=== PATIENT | male | born 1935 | race Caucasian/White ===

== ENCOUNTER 2021-07-29 13:59 | Outpatient (CLI) | payer MEDICARE, BC | END 2021-07-29 14:00 | disposition home or self-care (01) | LOC: BICMAMMO 13:59 | PROVIDERS: ATTEND Internal Medicine | DX: N63.10 Unspecified lump in the right breast, unspecified quadrant (principal); R92.8 Other abnormal and inconclusive findings on diagnostic imaging of breast | CPT/HCPCS: 77066; G0279 ==

== ENCOUNTER 2021-07-29 17:12 | Outpatient (CLI) | payer MEDICARE, BC ==
[2021-07-30 13:05] LABS: SARS-CoV-2 PCR by NAA Not Detected (NotDetected)
== END 2021-07-29 17:13 | disposition home or self-care (01) ==
LOC: LABBT 17:12
PROVIDERS: ATTEND Ophthalmology Retina Specialist
DX: Z01.812 Encounter for preprocedural laboratory examination (principal); H43.12 Vitreous hemorrhage, left eye; Z20.822 Contact with and (suspected) exposure to COVID-19
CPT/HCPCS: U0003; U0005

== ENCOUNTER 2021-08-01 | Day surgery (SDC) | payer MEDICARE, BC | END 2021-08-01 14:32 | disposition home or self-care (01) | PROC: 08T53ZZ Resection of Left Vitreous, Percutaneous Approach (ICD-10-PCS; principal; 2021-08-01) | PROC: 08NF3ZZ Release Left Retina, Percutaneous Approach (ICD-10-PCS; 2021-08-01) | PROC: 08PK3JZ Removal of Synthetic Substitute from Left Lens, Percutaneous Approach (ICD-10-PCS; 2021-08-01) | PROC: 08RK3JZ Replacement of Left Lens with Synthetic Substitute, Percutaneous Approach (ICD-10-PCS; 2021-08-01) ==